=== PATIENT | female | born 1980 | race Two or more races ===

== ENCOUNTER 2023-11-09 19:36 | Emergency (ER) | payer OTHER ==
[~2023-11-09] VITALS: Ht 167.6 cm; Wt 76.7 kg
[2023-11-09] MEDS ORDERED: IBUprofen 400 MG TABLET PO ONE (21:00)
[2023-11-09] MEDS ORDERED: ORPHENADRINE CITRATE 100 MG TABLET PO ONE (21:00)
[2023-11-09] MEDS ORDERED: ORPHENADRINE CITRATE 30 MG/ML AMPUL IM ONE (21:00)
[2023-11-09] MEDS ORDERED: KETOROLAC TROMETHAMINE 60 MG VIAL IM ONE (21:00)
== END 2023-11-09 23:00 | disposition home or self-care (01) ==
LOC: ER 19:36
DX: S13.8XXA Sprain of joints and ligaments of other parts of neck, initial encounter (principal); X58.XXXA Exposure to other specified factors, initial encounter; Y93.89 Activity, other specified; Y92.69 Other specified industrial and construction area as the place of occurrence of the external cause; Y99.8 Other external cause status